=== PATIENT | male | born 1990 | race Caucasian/White ===

== ENCOUNTER 2019-04-03 09:50 | Emergency (ER) | payer OTHER ==
[2019-04-03 10:03] VITALS: BP 140/88; TEMP 97.8; BMI 23.1
--- NOTE | 2019-04-03 10:36 | PDOC ---
History of Present Illness - General Chief Complaint: Respiratory Stated Complaint: PNEUMONIA Time Seen by Provider: 04/03/19 10:16 History Source: Patient Past History - Past Medical History Allergies/Adverse Reactions: Allergies Allergy/AdvReac Type Severity Reaction Status Date / Time No Known Allergies Allergy Verified 04/03/19 10:03 Home Medications: Ambulatory Orders NK [No Known Home Medication] 06/23/15 Asthma: Yes COPD: No - Surgical History Appendectomy: Yes - Immunization History Immunization Up to Date: Yes - Suicide/Smoking/Psychosocial Hx Smoking History: Current every day smoker Number of Cigarettes Smoked Daily: 10 Information on smoking cessation initiated: No Hx Alcohol Use: Yes Drug/Substance Use Hx: No Substance Use Type: None Review of Systems - Review of Systems Constitutional: Yes: Chills Respiratory: Yes: Cough, Shortness of Breath. No: Hemoptysis Cardiac (ROS): No: Chest Pain *Physical Exam - Vital Signs Last Vital Signs Temp Pulse Resp BP Pulse Ox 97.8 F 110 H 20 140/88 98 04/03/19 09:54 04/03/19 09:54 04/03/19 09:54 04/03/19 09:54 04/03/19 09:54 - Physical Exam General Appearance: Yes: Appropriately Dressed. No: Apparent Distress HEENT: positive: Normal ENT Inspection, Normal Voice. negative: Scleral Icterus (R), Scleral Icterus (L) Neck: positive: Supple. negative: Lymphadenopathy (R), Lymphadenopathy (L) Respiratory/Chest: positive: Lungs Clear, Normal Breath Sounds. negative: Respiratory Distress Cardiovascular: positive: Regular Rate, S1, S2 Integumentary: positive: Dry, Warm Neurologic: positive: Fully Oriented, Alert, Normal Mood/Affect ED Treatment Course - RADIOLOGY Radiology Studies Ordered: Category Date Time Status CHEST PA & LAT [RAD] Stat Radiology 04/03/19 10:28 Ordered Medical Decision Making - Medical Decision Making 04/03/19 10:34 28-year-old male, history of childhood asthma, smoker, here with productive cough w/ ?shortness of breath 4 days. Also complaining of chills. No hemoptysis or chest pain. No sick contacts or recent travel. Seen by PMD yesterday and diagnosed with pneumonia based on exam. Per patient, no chest x- ray was done. Currently on Z-Pack, but states he feels worse today. No history of pneumonia in the past See exam R/o PNA Currently on zpack, no prior cxr Tachy to 110 but afebrile w/ clear chest/lungs -CXR 04/03/19 10:46 CXR read as negative. Rpt HR 98 without intervention. Will dc to continue abx and supportive tx. To f/u with his PMD *DC/Admit/Observation/Transfer Diagnosis at time of Disposition: Cough - Discharge Dispostion Condition at time of disposition: Fair - Referrals Referrals: Curly Diaz [Primary Care Provider] - - Patient Instructions Printed Discharge Instructions: DI for Viral Upper Respiratory Infection -- Adult Additional Instructions: Your CXR was normal today with no evidence of pneumonia Your symptoms are most likely viral Continue antibiotics and rest, drink fluids and take over the counter meds as needed Follow-up with your PMD as needed - Post Discharge Activity
[2019-04-03 10:58] VITALS: PULSE 98
== END 2019-04-03 11:09 | disposition home or self-care (01) ==
LOC: JERFT 09:50
DX: J06.9 Acute upper respiratory infection, unspecified (principal); B97.89 Other viral agents as the cause of diseases classified elsewhere
CPT/HCPCS: 71046-TC-FY; 99281-25

== ENCOUNTER 2021-04-26 21:22 | Emergency (ER) | payer SELFPAY ==
[2021-04-26] MEDS ORDERED: TETRACAINE 0.5% OPHTH SOLN 2 ML BOTTLE ONE (21:28)
[2021-04-26] MEDS ORDERED: FLUORESCEIN NA 1 EA STRIP ONE (21:29)
[2021-04-26 21:52] VITALS: BP 119/76; PULSE 88; TEMP 98.1; BMI 23.1
[2021-04-26] MEDS ORDERED: IBUPROFEN 600 MG TABLET (FP) PO ONE ×2 (21:56→22:03)
[2021-04-26] MEDS ORDERED: CIPROFLOXACIN HCL 0.3% OPHTH 2.5ML BOTTLE ONE (22:22)
== END 2021-04-26 22:25 | disposition home or self-care (01) ==
LOC: FER 21:22
DX: S05.02XA Injury of conjunctiva and corneal abrasion without foreign body, left eye, initial encounter (principal)
CPT/HCPCS: 99283-25